=== PATIENT | male | born 1965 | race African-American/Black ===

== ENCOUNTER 2022-07-10 07:16 | Emergency (ER) | payer MEDICAID, OTHER ==
[~2022-07-10] VITALS: Ht 177.8 cm; Wt 86.0 kg
[2022-07-10] MEDS ORDERED: ACETAMINOPHEN 325MG TABLET PO ONE (07:45)
[2022-07-10] MEDS ORDERED: TOPUD PO (08:48)
[2022-07-10] MEDS ORDERED: LIDOCAINE HCL/PF 1% 10 MG/ML 5ML VIAL INFIL ONE (09:00)
[2022-07-10] MEDS ORDERED: BACITRACIN 15GM TUBE TOP ONE (09:30)
[2022-07-10 10:52] VITALS: BP 140/79
== END 2022-07-10 10:53 | disposition home or self-care (01) ==
LOC: ER 07:48
DX: S01.111A Laceration without foreign body of right eyelid and periocular area, initial encounter (principal); S52.692A Other fracture of lower end of left ulna, initial encounter for closed fracture; R51.9 Headache, unspecified; I10 Essential (primary) hypertension; E11.9 Type 2 diabetes mellitus without complications; Y93.01 Activity, walking, marching and hiking; V06.90XA Pedestrian on foot injured in collision with other nonmotor vehicle, unspecified whether traffic or nontraffic accident, initial encounter; Y92.488 Other paved roadways as the place of occurrence of the external cause
CPT/HCPCS: 12011; 29105; 70450; 72125; 73110; 99284; J3490; Z7610